=== PATIENT | male | born 1940 | race Caucasian/White ===

== ENCOUNTER → 2022-08-19 14:57 | Outpatient (CLI) | payer OTHER, SELFPAY ==
--- NOTE | 2022-08-19 | DI.ECHO.S_ITS ---
[facility] +---------+ : : [address] : [address] : : : : [id number] : : : : Phone: [phone] +---------+ Echocardiogram Report + + :Name: LICHA CAMPOS Study Date: 08/19/2022 Height: 67 in : :[facility] ReadingLocation: Weight: 140 lb : : Gender: Male BSA: 1.7 m2 : :: 1940 Age: 82 yrs BP: 121/70 mmHg: :Reason For Study: Asthma/Stenosis of the Heart : :Ordering Physician: TAMEKA, : :JUDITH Performed By: Stephania Del Valle : :Referring: JUDITH ENGLISH : + + Interpretation Summary Technically difficult study due to patient's altered mental status and body habitus. Grossly normal left ventricle size with ejection fraction 60-65%. Moderate aortic valve sclerosis. No valvular regurgitation. Procedure: A two-dimensional transthoracic echocardiogram with color flow and Doppler was performed. The study quality was technically difficult due to patient's altered mental status and body habitus. There is no prior echocardiogram noted for this patient. The patient was in normal sinus rhythm during the exam. Left Ventricle: The left ventricle is grossly normal size. The ejection fraction is estimated to be 60-65%. There are no obvious focal wall motion abnormalities noted but poor endocardial definition reduces the sensitivity for the detection of such. Right Ventricle: The right ventricle is normal in size and function. Atria: The left atrial size is normal. Right atrial size is normal. Mitral Valve: The mitral valve leaflets appear mildly thickened, but open well. There is no mitral valve stenosis. There is no mitral regurgitation noted. Aortic Valve: The aortic valve is trileaflet. There is moderate aortic valve sclerosis. There is no aortic valve stenosis. No aortic regurgitation is present. Tricuspid Valve: The tricuspid valve is normal. There is no tricuspid stenosis. There is trace tricuspid regurgitation. Pulmonic Valve: The pulmonic valve leaflets are thin and pliable; valve motion is normal. There is no pulmonic valvular stenosis. There is no pulmonic valvular regurgitation. Great Vessels: The aortic root is not well visualized. The ascending aorta is normal in size. The pulmonary artery is normal size. The IVC is of normal diameter and collapses greater than 50% with a sniff. This suggests a low right atrial pressure of 3 mm Hg. Pericardium/ Pleura There is no pericardial effusion. There is no pleural effusion. MMode/2D Measurements & Calculations LVOT diam: 1.9 cm LA A4 area: 13.6 cm2 Ao root diam: 3.8 cm asc Aorta Diam: 2.9 cm RA long axis: 3.5 cm RVD1 (basal): 3.4 cm RA area: 7.2 cm2 RA vol: 12.8 ml RA : 7.4 ml/m2 TAPSE_phl: 2.3 cm Doppler Measurements & Calculations MV E max naun: 54.4 cm/sec MV P1/2t-pr_phl: 113.0 msec MV A max naun: 80.6 cm/sec MV E/A: 0.67 Med Peak E' Naun: 5.8 cm/sec E/E' med: 9.4 Lat Peak E' Naun: 8.8 cm/sec E/E' lat: 6.2 E/e' average: 7.8 MV dec time: 0.39 sec Electronically signed by: Laly Hope on Reading Physician:08/19/2022 09:22 PM
== END ==
PROVIDERS: Family Provider Family Medicine; PCP Family Medicine; Referring Provider Chiropractor; Visit Provider Chiropractor
DX: I35.8 Other nonrheumatic aortic valve disorders (principal); J45.909 Unspecified asthma, uncomplicated
CPT/HCPCS: 93306